=== PATIENT | male | born 1955 | race Caucasian/White ===

== ENCOUNTER 2024-09-28 09:47 | Day surgery (SDC) | payer MEDICARE, OTHER ==
[~2024-09-28 09:47] MED LIST: Lactated Ringers 1,000 ML IV PRN; Sodium Chloride 0.9% 10 ML Syringe FLUSH PRN
[2024-09-28] MEDS ORDERED: fentaNYL 100 MCG/2 ML SDV IV ONE (09:48)
[2024-09-28] MEDS ORDERED: Sodium Chloride 0.9% 10 ML Syringe IV ONE (09:48)
[2024-09-28] MEDS ORDERED: Midazolam 1 MG/ML 2 ML SDV IV ONE (09:48)
[2024-09-28] MEDS: acetaZOLAMIDE 500 MG Cap.ER PO ONE (12:02)
== END 2024-09-28 12:23 | disposition home or self-care (01) ==
LOC: FB.SDS 09:47
PROVIDERS: ATTEND Ophthalmology
DX: H26.9 Unspecified cataract (principal); Z87.891 Personal history of nicotine dependence
CPT/HCPCS: 66984; A9270; J2250; J3010; J3490; V2632; 00142

== ENCOUNTER 2024-10-12 09:48 | Day surgery (SDC) | payer MEDICARE, OTHER ==
[2024-10-12] MEDS ORDERED: fentaNYL 100 MCG/2 ML SDV IV ONE (09:49)
[2024-10-12] MEDS ORDERED: Midazolam 1 MG/ML 2 ML SDV IV ONE (09:49)
[2024-10-12] MEDS: acetaZOLAMIDE 500 MG Cap.ER PO ONE (11:56)
== END 2024-10-12 12:15 | disposition home or self-care (01) ==
LOC: FB.SDS 09:48
PROVIDERS: ATTEND Ophthalmology
DX: H26.9 Unspecified cataract (principal); Z87.891 Personal history of nicotine dependence
CPT/HCPCS: 93005; A9270-GY; J2250; J3010; V2632